=== PATIENT | male | born 1945 ===

== ENCOUNTER → 2016-08-13 | Outpatient (CLI) | payer OTHER | END | disposition home or self-care (01) | LOC: C.LABSPEC 17:00 | PROVIDERS: ATTEND Podiatrist Foot & Ankle Surgery | DX: L60.0 Ingrowing nail (principal) ==

== ENCOUNTER → 2017-04-08 | Outpatient (CLI) | payer OTHER ==
[2017-04-08 14:27] LABS: ALKALINE PHOSPHATASE 94 U/L (45-117); ALT/SGPT 25 U/L (12-78); AST/SGOT 13 U/L (15-37); BLOOD UREA NITROGEN 17 mg/dl (7-18); BUN/CREATININE RATIO 14.2 (10-20); CALCIUM 8.9 mg/dl (8.5-10.1); CARBON DIOXIDE 30 mmol/L (21-32); CHLORIDE 106 mmol/L (98-107); CREATININE 1.17 mg/dl (0.60-1.40); GLUCOSE 97 mg/dl (70-99); POTASSIUM 3.3 mmol/L (3.5-5.1); SODIUM 143 mmol/L (136-145)
[2017-04-08 14:28] LABS: CHOLESTEROL 207 mg/dl (0-200); CHOLESTEROL/HDL RATIO 5.4; HDL CHOLESTEROL 38 mg/dl; LDL CHOLESTEROL CALCULATED 126 mg/dl; TRIGLYCERIDES 215 mg/dl (0-150); VERY LOW DENSITY LIPOPROT CALC 43 mg/dl
== END | disposition home or self-care (01) ==
LOC: C.LABBC 11:53
PROVIDERS: ATTEND Internal Medicine
DX: Z23 Encounter for immunization (principal); I10 Essential (primary) hypertension; E78.5 Hyperlipidemia, unspecified